=== PATIENT | female | born 1990 | race Caucasian/White ===

== ENCOUNTER 2020-11-11 06:16 | Emergency (ER) | payer OTHER ==
--- NOTE | 2020-11-11 07:24 | ED Physician Documentation ---
PD HPI HEENT - Stated complaint Stated Complaint: EAR PX - Chief complaint Chief Complaint: Heent - History obtained from History obtained from: Patient - Additional information Additional information: 30-year-old woman, previously healthy presents with bilateral ear pain gradual in onset, constant since Saturday (4 days ago), progressively worsening, nonradiating, localized to the bilateral ears, worse with tugging on the ears. No headache, sinus congestion, sore throat, pain to the jaw or skull. no fever Review of Systems Constitutional: denies: Fever, Chills Ears: reports: Ear pain Nose: denies: Rhinorrhea / runny nose, Congestion PD PAST MEDICAL HISTORY - Past Medical History Past Medical History: No - Past Surgical History Past Surgical History: No - Present Medications Home Medications: Ambulatory Orders Medication Instructions Recorded Confirmed Ciproflox/Dexameth Otic Drops 4 drops OT BID #7.5 ml 11/11/20 [Ciprodex Otic Drops] Ibuprofen [Motrin] 600 mg PO Q6H PRN #30 tab 11/11/20 - Allergies Allergies/Adverse Reactions: Allergies Allergy/AdvReac Type Severity Reaction Status Date / Time No Known Drug Allergies Allergy Verified 11/11/20 06:27 - Social History Does the pt smoke?: No Smoking Status: Never smoker Does the pt drink ETOH?: No Does the pt have substance abuse?: No - Immunizations Immunizations are current?: No Immunizations: TDAP >10years/unknown PD ED PE NORMAL - Vitals Vital signs reviewed: Yes - General General: Alert and oriented X 3, No acute distress, Well developed/nourished - HEENT HEENT: Atraumatic, PERRL, EOMI, Moist mucous membranes, Pharynx benign, Other (Bilateral TMs clear. Bilateral external otitis) - Derm Derm: Normal color, Warm and dry - Neuro Neuro: Alert and oriented X 3, medical insurance clerk 2-12 intact - Psych Psych: Normal mood, Normal affect Results - Vitals Vitals: Vital Signs - 24 hr 11/11/20 06:24 Temperature 37.3 C Heart Rate 91 Respiratory 17 Rate Blood Pressure 121/61 O2 Saturation 96 Oxygen O2 Source Room air PD MEDICAL DECISION MAKING - ED course ED course: 30-year-old woman presented with external otitis. Education given and return precautions given. She will follow up with her primary doctor. Departure - Departure Disposition: 01 Home, Self Care Clinical Impression: External otitis Condition: Good Instructions: ED Otitis Externa Prescriptions: Ciproflox/Dexameth Otic Drops [Ciprodex Otic Drops] 4 drops OT BID #7.5 ml Ibuprofen [Motrin] 600 mg PO Q6H PRN #30 tab PRN Reason: Pain Comments: You were seen in the emergency department for external ear infection. Take your antibiotic eardrops as prescribed and follow-up with your primary doctor. Return to the emergency department if you have any new or worsening symptoms or other concerns.
[2020-11-11 07:29] VITALS: BP 128/78
== END 2020-11-11 07:36 | disposition home or self-care (01) ==
LOC: ED 06:16
DX: H60.93 Unspecified otitis externa, bilateral (principal)
CPT/HCPCS: 99282; 99284

== ENCOUNTER 2021-09-14 10:57 | Outpatient (CLI) | payer OTHER | END 2021-09-14 10:58 | disposition home or self-care (01) | LOC: LAB.N 10:57 | PROVIDERS: ATTEND Midwife | DX: Z34.01 Encounter for supervision of normal first pregnancy, first trimester (principal) | CPT/HCPCS: 36415; 84702 ==

== ENCOUNTER 2021-09-16 11:02 | Outpatient (CLI) | payer OTHER | END 2021-09-16 11:03 | disposition home or self-care (01) | LOC: LAB.N 11:02 | PROVIDERS: ATTEND Midwife | DX: Z34.01 Encounter for supervision of normal first pregnancy, first trimester (principal) | CPT/HCPCS: 36415; 84702 ==

== ENCOUNTER 2021-09-21 10:36 | Outpatient (CLI) | payer OTHER | END 2021-09-21 10:37 | disposition home or self-care (01) | LOC: LAB 10:36 | PROVIDERS: ATTEND Midwife | DX: Z34.01 Encounter for supervision of normal first pregnancy, first trimester (principal) | CPT/HCPCS: 36415; 84702 ==

== ENCOUNTER 2021-10-13 06:28 | Outpatient (CLI) | payer OTHER | END 2021-10-13 06:29 | disposition critical access hospital (66) | LOC: EMS 06:28 | DX: O03.9 Complete or unspecified spontaneous abortion without complication (principal); R56.9 Unspecified convulsions | CPT/HCPCS: A0425; A0427 ==

== ENCOUNTER 2021-10-13 06:45 | Emergency (ER) | payer OTHER ==
[2021-10-13] MEDS ORDERED: KETOROLAC 15 MG/ML VIAL IVP STA (06:59)
[2021-10-13] MEDS ORDERED: SODIUM CHLORIDE 0.9% 1,000 ML IV STA (06:59)
--- NOTE | 2021-10-13 07:00 | ED Physician Documentation ---
PD HPI SYNCOPE - Stated complaint Stated Complaint: FALL/LOC/SZ BLOOD LOSS - Chief complaint Chief Complaint: Neuro - History obtained from History obtained from: Patient - Additional information Additional information: 31-year-old woman presents after an episode of syncope. Her has been marked by an ultrasound with known intrauterine but no progression and falling beta-hCG levels. She developed some spotting and then more bleeding and then had a syncopal episode with possible seizure. The seizure-like activity was marked by jerking that lasted 45 seconds or so wit h her eyes rolling back into her head and then she became quite stiff. She did have what could have been a postictal period for quite some time, at least minutes with poor memory and confusion. She is a G4, P2 with history of a miscarriage last fall. Review of Systems Ten Systems: 10 systems reviewed and negative Musculoskeletal: denies: Neck pain, Back pain Neurologic: reports: Head injury, LOC. denies: Headache PD PAST MEDICAL HISTORY - Past Surgical History Past Surgical History: No - Present Medications Home Medications: Ambulatory Orders Medication Instructions Recorded Confirmed HYDROcod/ACETAM 5/325 [[place] 5/325] 1 - 2 tab PO Q6H PRN #15 tablet 10/13/21 Ondansetron Odt [Zofran] 4 mg TL Q6H PRN #10 tablet 10/13/21 - Allergies Allergies/Adverse Reactions: Allergies Allergy/AdvReac Type Severity Reaction Status Date / Time No Known Drug Allergies Allergy Verified 10/13/21 06:55 - Social History Does the pt smoke?: No Smoking Status: Never smoker Does the pt drink ETOH?: No Does the pt have substance abuse?: No - Immunizations Immunizations are current?: No Immunizations: TDAP >10years/unknown PD ED PE NORMAL - Vitals Vital signs reviewed: Yes (Hemodynamics are unremarkable) - General General: Alert and oriented X 3, No acute distress - HEENT HEENT: PERRL, EOMI - Neck Neck: Supple, no meningeal sign, No bony TTP - Cardiac Cardiac: RRR, No murmur - Respiratory Respiratory: No respiratory distress, Clear bilaterally - Abdomen Abdomen: Soft, Non tender - Derm Derm: Normal color, Warm and dry - Extremities Extremities: No edema, No calf tenderness / cord - Neuro Neuro: Alert and oriented X 3, Normal speech Eye Opening: Spontaneous Motor: Obeys Commands Verbal: Oriented GCS Score: 15 - Psych Psych: Normal mood, Normal affect Results - Vitals Vitals: Vital Signs - 24 hr 10/13/21 10/13/21 10/13/21 06:49 06:57 08:56 Temperature 37.4 C Heart Rate 72 65 58 L Heart Rate [ Sitting] Heart Rate [ Standing] Heart Rate [ Supine] Respiratory 16 23 22 Rate Blood Pressure 103/82 H 103/82 H 104/62 Blood Pressure [Sitting] Blood Pressure [Standing] Blood Pressure [Supine] O2 Saturation 100 100 100 10/13/21 10/13/21 10/13/21 09:00 09:51 10:02 Temperature Heart Rate 61 59 L 64 Heart Rate [ Sitting] Heart Rate [ Standing] Heart Rate [ Supine] Respiratory 15 19 16 Rate Blood Pressure 104/52 L 104/56 L 108/60 Blood Pressure [Sitting] Blood Pressure [Standing] Blood Pressure [Supine] O2 Saturation 99 99 100 10/13/21 10:20 Temperature Heart Rate Heart Rate [ 70 Sitting] Heart Rate [ 98 Standing] Heart Rate [ 62 Supine] Respiratory Rate Blood Pressure Blood Pressure 97/65 [Sitting] Blood Pressure 93/67 [Standing] Blood Pressure 102/56 L [Supine] O2 Saturation Oxygen O2 Source Room air - EKG (time done) 0856 Rate: Rate (enter#) (57) Rhythm: NSR [place] Bottom: Normal Intervals: Normal NV QRS: Normal Ischemia: Normal ST segments - Labs Labs: Laboratory Tests 10/13/21 10/13/21 10/13/21 06:54 06:54 06:54 WBC 11.9 H RBC 3.77 L Hgb 12.0 Hct 35.7 L MCV 94.7 MCH 31.8 H MCHC 33.6 RDW 11.9 L Plt Count 333 MPV 10.3 Neut # (Auto) 10.2 H Lymph # (Auto) 1.2 L [place] # (Auto) 0.5 Eos # (Auto) 0.0 Baso # (Auto) 0.0 Absolute Nucleated RBC 0.00 Nucleated RBC % 0.0 Sodium 136 Potassium 4.5 Chloride 100 L Carbon Dioxide 25 Anion Gap 11.0 BUN 14 Creatinine 0.7 Estimated GFR (MDRD) 96 Glucose 142 H Calcium 9.1 Total Bilirubin 0.5 AST 15 ALT 17 Alkaline Phosphatase 43 Total Protein 7.2 Albumin 4.2 Globulin 3.0 Albumin/Globulin Ratio 1.4 Lipase 31 HCG, Quant 6801.00 SARS-CoV-2 (PCR) Blood Type Blood Type Recheck Antibody Screen 10/13/21 10/13/21 10/13/21 06:54 07:30 08:58 WBC RBC Hgb Hct MCV MCH MCHC RDW Plt Count MPV Neut # (Auto) Lymph # (Auto) [place] # (Auto) Eos # (Auto) Baso # (Auto) Absolute Nucleated RBC Nucleated RBC % Sodium Potassium Chloride Carbon Dioxide Anion Gap BUN Creatinine Estimated GFR (MDRD) Glucose Calcium Total Bilirubin AST ALT Alkaline Phosphatase Total Protein Albumin Globulin Albumin/Globulin Ratio Lipase HCG, Quant SARS-CoV-2 (PCR) NOT DETECTED Blood Type A POSITIVE Blood Type Recheck A POSITIVE Antibody Screen NEGATIVE 10/13/21 10:03 WBC 11.1 H RBC 3.45 L Hgb 11.0 L Hct 32.2 L MCV 93.3 MCH 31.9 H MCHC 34.2 RDW 11.9 L Plt Count MPV Neut # (Auto) Lymph # (Auto) [place] # (Auto) Eos # (Auto) Baso # (Auto) Absolute Nucleated RBC Nucleated RBC % Sodium Potassium Chloride Carbon Dioxide Anion Gap BUN Creatinine Estimated GFR (MDRD) Glucose Calcium Total Bilirubin AST ALT Alkaline Phosphatase Total Protein Albumin Globulin Albumin/Globulin Ratio Lipase HCG, Quant SARS-CoV-2 (PCR) Blood Type Blood Type Recheck Antibody Screen PD MEDICAL DECISION MAKING - ED course ED course: 31-year-old who is in the midst of a miscarriage now with heavier bleeding and a syncopal episode last night. There is some concern for seizure based on the 's description of events. Could have been just myoclonic jerking but he describes 45 seconds of jerking with what could certainly be a postictal period. As such a CT scan of the head was done, interpreted contemporaneously by me, and normal. Subsequently went over for ultrasound noting her beta-hCG has dropped significantly from a month ago and the ultrasound is consistent with a blighted ovum now in the upper cervix which is causing her bleeding. Given the possibility of seizure, I discussed with patient and her that they should follow-up with neurology and not drive for [address] Pierce, package pick up at 845 and she will be in to see the patient. 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 Recommends second H&H, was able to clear material from the cervix and thinks bleeding is over. Departure - Departure Disposition: 01 Home, Self Care Clinical Impression: Miscarriage Syncope Qualifiers: Syncope type: unspecified Qualified Code(s): R55 - Syncope and collapse Condition: Good Record reviewed to determine appropriate education?: Yes Instructions: ED Dizziness Syncope Fainting W Pre Prescriptions: HYDROcod/ACETAM 5/325 [[place] 5/325] 1 - 2 tab PO Q6H PRN #15 tablet PRN Reason: Pain Ondansetron Odt [Zofran] 4 mg TL Q6H PRN #10 tablet PRN Reason: Nausea / Vomiting Comments: I sent your prescriptions electronically to [facility] in [place]. As discussed, I think the fainting is most likely related to the blood loss from miscarriage, that said given the seizure-like activity that was witnessed, reasonable to follow-up with a neurologist. Talk with your primary care physician, next available appointment about a referral. Do not drive until neurology clears you or 6 months have passed. I am prescribing a short course of narcotic pain medication for you. These are potentially dangerous and addictive medications that should be used carefully. These medications may constipate you. Take an uado-avj-nvjzziu stool softener (docusate) twice daily with plenty of water while taking these medications. If you go 24 hours without a bowel movement, take hbzw-wta-bvwgquq miralax, per package instructions. Do not drink or drive while taking these medications. If you received narcotic or sedating medications while in the emergency department, do not drive for 24 hours. Store this medication in a safe, secure place and out of reach of children. It is a violation of federal law to give or sell this medication to another person or to use in a manner other than prescribed. The ED will not refill narcotic prescriptions, including prescriptions lost or stolen. To dispose of unwanted medications: 1. [facility] at [address] in [place] has a medication drop box. They accept prescription medications (in pill form) Saturday through Saturday 9:00 a.m. to 5:00 p.m. 2. The [facility] accepts prescription medications (in pill form only) for disposal year round. Call for more information. 3. Contact the [facility] for the next [facility] sponsored prescription drug collection event. , [phone], or [phone]; Note that many narcotic pain relievers also contain Tylenol/acetaminophen. Please ensure that your total dose of acetaminophen from all sources does not exceed 3 g (3000 mg) per day.
[2021-10-13 07:12] LABS: BASOPHILS % (AUTO) 0.3 %; EOSINOPHILS % (AUTO) 0.1 %; HCT - HEMATOCRIT 35.7 % (37.0-47.0); LYMPHOCYTES # (AUTO) 1.2 10^3/uL (1.5-3.5); LYMPHOCYTES % (AUTO) 10.1 %; MEAN CORPUSCULAR HEMOGLOBIN 31.8 pg (27.0-31.0); MEAN CORPUSCULAR HGB CONC 33.6 g/dL (32.0-36.0); MEAN CORPUSCULAR VOLUME 94.7 fL (81.0-99.0); MEAN PLATELET VOLUME 10.3 fL (7.9-10.8); MONOCYTES # (AUTO) 0.5 10^3/uL (0.0-1.0); MONOCYTES % (AUTO) 3.9 %; NEUTROPHILS # (AUTO) 10.2 10^3/uL (1.5-6.6); NEUTROPHILS % (AUTO) 85.2 %; PLT - PLATELET COUNT 333 10^3/uL (130-450); RED BLOOD COUNT 3.77 10^6/uL (4.20-5.40); RED CELL DISTRIBUTION WIDTH 11.9 % (12.0-15.0); WHITE BLOOD COUNT 11.9 x10^3/uL (4.8-10.8)
[2021-10-13 07:29] LABS: ALBUMIN 4.2 g/dL (3.2-5.5); ALBUMIN/GLOBULIN RATIO 1.4 (1.0-2.2); BILIRUBIN,TOTAL 0.5 mg/dL (0.2-1.0); CALCIUM 9.1 mg/dL (8.5-10.3); CREATININE 0.7 mg/dL (0.4-1.0); POTASSIUM 4.5 mmol/L (3.5-5.0); TOTAL PROTEIN 7.2 g/dL (6.7-8.2)
--- NOTE | 2021-10-13 07:40 | CT Report ---
PROCEDURE: HEAD WO INDICATIONS: fall and struck head/headache/? sz TECHNIQUE: Noncontrast 4.5 mm thick angled axial sections acquired from the foramen magnum to the vertex. For r adiation dose reduction, the following was used: automated exposure control, adjustment of mA and/or kV according to patient size. COMPARISON: None. FINDINGS: Image quality: Excellent. CSF spaces: Basal cisterns are patent. No extra-axial fluid collections. Ventricles are normal in size and shape. Brain: No midline shift. No intracranial masses or hemorrhage. Hand-white matter interface is norm al. Skull and face: Calvarium and visualized facial bones are intact, without suspicious lesions. Sinuses: Visualized sinuses and mastoids are clear. IMPRESSION: 1. No acute intracranial process. Reviewed by: Magi Saravia MD on 10/13/2021 7:39 AM PDT Approved by: Magi Saravia MD on 10/13/2021 7:39 AM PDT Station ID: [id number]
--- NOTE | 2021-10-13 09:45 | Ultrasound Report ---
PROCEDURE: OB First Trimester w/TV INDICATIONS: IUFD WITH POSSIBLE MISCARRIAGE NOW OUTSIDE/PRIOR DATING DATA: Last menstrual period (LMP): 07/25/2021.. LMP-based estimated date of delivery ([place]): Not calculated.. First dating scan (date and location): 09/20/2021 [facility]. Estimated date of delivery ([place]) from first dating scan: Not provided.. TECHNIQUE: Real-time scanning was performed of the fetus and maternal pelvic organs, with image documentation. Endovaginal scanning was also performed to better visualize the fetus and maternal ovaries. COMPARISON: OB ultrasound 10/03/2021. Report from a [facility] OB ultrasound 09/20/2021. FINDINGS: Intrauterine irregular gestational sac measuring 2.29 cm, (previously 2.09). Estimated gestational ag e 7 weeks 2 days. The gestational sac is low in the uterine cavity at the internal cervical os. pole is not confirmed. No cardiac motion. A yolk sac is seen. Maternal organs: Ovaries are unremarkable in appearance. No mass or significant cyst. IMPRESSION: Irregular intrauterine gestational sac located at the internal cervical os. No pole is not confirmed. Ultrasound findings diagnostic of failure. in progress. Results were conveyed to Dr. Crump by the supply chain planner at 8:55 AM. Reviewed by: Darshan Lombardo MD on 10/13/2021 9:44 AM PDT Approved by: Darshan Lombardo MD on 10/13/2021 9:44 AM PDT Station ID: [id number]
[2021-10-13 10:07] LABS: HCT - HEMATOCRIT 32.2 % (37.0-47.0); MEAN CORPUSCULAR HEMOGLOBIN 31.9 pg (27.0-31.0); MEAN CORPUSCULAR HGB CONC 34.2 g/dL (32.0-36.0); MEAN CORPUSCULAR VOLUME 93.3 fL (81.0-99.0); RED BLOOD COUNT 3.45 10^6/uL (4.20-5.40); RED CELL DISTRIBUTION WIDTH 11.9 % (12.0-15.0); WHITE BLOOD COUNT 11.1 x10^3/uL (4.8-10.8)
--- NOTE | 2021-10-13 10:25 | CONSULTATION NOTE ---
Referring Provider Name of Referring Provider:: Uriel Crump MD Consult Date: 10/13/21 Chief Complaint - Chief Complaint Chief Complaint: Vaginal Bleeding History of Present Illness - History of Present Illness HPI Comment/Other: Patient was brought into the emergency room via EMS after a syncopal episode. Patient reports that she was diagnosed with a miscarriage approximately 1 month ago while seeing a tieing machine operator. She reports that a gestational sac was seen on ultrasound however she did not start having bleeding until yesterday. Her bleeding became heavy at approximately 3 AM. She reports soaking multiple pads in an hour. She reports abdominal cramping at the time. Her bleeding has now decreased and her pain is improved.She denies any medical problems. She denies previous surgeries. 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) MRSA Hx?: No Meds/Allgy - Home Medications Home Medications: Ambulatory Orders Medication Instructions Recorded Confirmed HYDROcod/ACETAM 5/325 [[place] 5/325] 1 - 2 tab PO Q6H PRN #15 tablet 10/13/21 Ondansetron Odt [Zofran] 4 mg TL Q6H PRN #10 tablet 10/13/21 - Allergies Allergies/Adverse Reactions: Allergies Allergy/AdvReac Type Severity Reaction Status Date / Time No Known Drug Allergies Allergy Verified 10/13/21 06:55 Review of Systems - Constitutional Constitutional: denies: Fever, Chills Exam - Vital Signs Reviewed Vital Signs: Yes Vital Signs: Vital Signs x48h Temp Pulse Pulse Pulse Pulse Resp BP 10/13/21 10:20 70 98 62 10/13/21 10:02 64 16 108/60 10/13/21 09:51 59 L 19 104/56 L 10/13/21 09:00 61 15 104/52 L 10/13/21 08:56 58 L 22 104/62 10/13/21 06:57 65 23 103/82 H 10/13/21 06:49 99.3 F 72 16 103/82 H BP BP BP Pulse Ox 10/13/21 10:20 97/65 93/67 102/56 L 10/13/21 10:02 100 10/13/21 09:51 99 10/13/21 09:00 99 10/13/21 08:56 100 10/13/21 06:57 100 10/13/21 06:49 100 - Physical Exam General Appearance: positive: No acute distress Respiratory: positive: No respiratory distress Abdomen: positive: Non-tender, No distention Neurologic/Psychiatric: positive: Oriented x3 Comments/Other: Sterile speculum exam. Approximately 30 cc of blood and clot noted in the vaginal vault. Clots and membranous tissue noted in the cervical canal. These were gently removed with ring forcep and sent to pathology. Conclusion/Plan - Problem List (1) Complete Conclusion/Plan: 31-year-old G4, P2 at approximately 12 weeks gestation who presents with syncopal episode of vaginal bleeding. #Complete ABpatient with initially heavy vaginal bleeding. Now improved to minimal. Formal ultrasound with gestational sac reportedly noted in the internal cervix. Sterile speculum exam with clots noted in the endocervical canal removed with no active bleeding noted after. Rh+. Stable for discharge with supportive treatment pain meds and antiemetics as needed. Patient was given ED precautions to return for heavy bleeding soaking 2 pads in an hour. Recommend follow-up with OB within 2 weeks. Declined contraception at this time. - Lab Results Lab results reviewed: Yes Fish Bones: 10/13/21 10:03 10/13/21 06:54 - Diagnostic Imaging Results Diagnostic Imaging Results: positive: Final report reviewed
[2021-10-13 10:32] VITALS: BP 100/53
--- OUTSIDE RECORDS SUMMARY | 2021-10-19 14:55 | EXTERNAL MEDICAL SUMMARY RPT | Continuity of Care Document ---
:1990 Author Organization [facility] Address [address] [place] [phone] Phone Allergies No information. Encounters No information. Functional Status No information. Immunizations No information. Medications No information. Problems No information. Procedures No information. Results/Labs test date author facility value unit interpret ation Result panel 1 (unknown) (no (unknown) (unknown) (no value) (units (unk nown) date) unknown) (unknown) (no (unknown) (unknown) [address] [place] [address] (units (unknown) date) unknown) (unknown) (no (unknown) (unknown) [place], [place] (units ( unknown) date) [id number] unknown) (unknown) (no (unknown) (unknown) [facility] (units (unknown) date) unknown) (unknown) (no (unknown) (unknown) Signed (units (unkno wn) date) unknown) (unknown) (no (unknown) (unknown) Ultrasound (units (unk nown) date) Report unknown) (unknown) (no (unknown) (unknown) (no value) (units (unk nown) date) unknown) (unknown) (no (unknown) (unknown) 05/04/2022. (units (un known) date) unknown) (unknown) (no (unknown) (unknown) 09/20/21 (units (unkno wn) date) unknown) (unknown) (no (unknown) (unknown) 7 weeks 5 days. (units (unknown) date) A yolk sac is unknown) visualized. A 2nd sac which could be the amnion (unknown) (no (unknown) (unknown) Approved by: (units (u nknown) date) Darshan Lombardo M.D. unknown) on 09/20/2021 at 10:48 (unknown) (no (unknown) (unknown) COMPARISON: (units (un known) date) None. unknown) (unknown) (no (unknown) (unknown) Dictated by: (units (u nknown) date) Darshan Lombardo M.D. unknown) on 09/20/2021 at 10:45 (unknown) (no (unknown) (unknown) Embryo: Mean (units ( unknown) date) gestational sac unknown) diameter 2.7 cm corresponding to estimated (unknown) (no (unknown) (unknown) Estimated date (units (unknown) date) of delivery ([place]) unknown) from first dating scan: Estimated based on (unknown) (no (unknown) (unknown) FINDINGS: (units (unkn own) date) unknown) (unknown) (no (unknown) (unknown) First dating (units (u nknown) date) scan (date and unknown) location): 09/20/2021. (unknown) (no (unknown) (unknown) Heart rate: Not (units (unknown) date) applicable. unknown) (unknown) (no (unknown) (unknown) IMPRESSION: (units (un known) date) unknown) (unknown) (no (unknown) (unknown) INDICATIONS: (units (u nknown) date) DATING AND unknown) VIABILITY (unknown) (no (unknown) (unknown) Intrauterine (units (u nknown) date) gestational sac unknown) corresponding to estimated gestational age of 7 (unknown) (no (unknown) (unknown) LMP-based (units (unkn own) date) estimated date of unknown) delivery ([place]): 05/01/2022. (unknown) (no (unknown) (unknown) Last menstrual (units (unknown) date) period (LMP): unknown) 07/25/2021. (unknown) (no (unknown) (unknown) Maternal organs: (units (unknown) date) Ovaries are unknown) within normal limits. (unknown) (no (unknown) (unknown) OUTSIDE/PRIOR (units ( unknown) date) DATING DATA: unknown) (unknown) (no (unknown) (unknown) Real-time (units (unkn own) date) scanning was unknown) performed of the fetus and maternal pelvic organs, with (unknown) (no (unknown) (unknown) Recommend (units (unkn own) date) short-term unknown) follow-up OB ultrasound and trending beta hCG. (unknown) (no (unknown) (unknown) TECHNIQUE: (units (unk nown) date) unknown) (unknown) (no (unknown) (unknown) We strive to (units (u nknown) date) produce accurate, unknown) complete, and clear reports of imaging services. (unknown) (no (unknown) (unknown) and voice (units (unkn own) date) recognition unknown) software. Therefore, it may contain abnormal punctuation, (unknown) (no (unknown) (unknown) based on [facility]. (units (unknown) date) No pole at unknown) this time. Yolk sac and possible amnion sac (unknown) (no (unknown) (unknown) documentation. (units (unknown) date) Endovaginal unknown) scanning was also performed to better visualize the (unknown) (no (unknown) (unknown) insertions (units (unk nown) date) and/or omissions. unknown) Occasional wrong-word or sound-alike substitutions (unknown) (no (unknown) (unknown) maternal (units (unkno wn) date) ovaries. unknown) (unknown) (no (unknown) (unknown) occur. Though we (units (unknown) date) review the report unknown) and make efforts to correct it, we do (unknown) (no (unknown) (unknown) the report be (units ( unknown) date) read carefully in unknown) proper context to recognize any text (unknown) (no (unknown) (unknown) us in improving (units (unknown) date) patient care, unknown) this report was composed using standard report (unknown) (no (unknown) (unknown) visualized. No (units (unknown) date) pole at unknown) this time. (unknown) (no (unknown) (unknown) [id number] (units (unkn own) date) unknown) (unknown) (no (unknown) (unknown) Accession (units (unkn own) date) Number: unknown) [id number] (unknown) (no (unknown) (unknown) Age/Sex: 31 / F (units (unknown) date) Date of unknown) Service: (unknown) (no (unknown) (unknown) : 1990 (units (unknown) date) Acct:[id number] unknown) (unknown) (no (unknown) (unknown) Loc: [place] (units (unkno wn) date) unknown) (unknown) (no (unknown) (unknown) [facility] (units (unkno wn) date) unknown) (unknown) (no (unknown) (unknown) Ordering (units (unkno wn) date) Provider: unknown) Elicia Brewer L.M. (unknown) (no (unknown) (unknown) PROCEDURE: US (units (unknown) date) OB <= 14 WEEKS unknown) FETUS (unknown) (no (unknown) (unknown) Patient: (units (unkno wn) date) Donna Hunt unknown) MR#: [id number] (unknown) (no (unknown) (unknown) Procedure: US OB (units (unknown) date) <= 14 weeks fetus unknown) (unknown) (no (unknown) (unknown) To assist (units (unkn own) date) unknown) (unknown) (no (unknown) (unknown) fetus and (units (unkn own) date) unknown) (unknown) (no (unknown) (unknown) gestational age (units (unknown) date) unknown) (unknown) (no (unknown) (unknown) image (units (unkno wn) date) unknown) (unknown) (no (unknown) (unknown) inaccuracies. (units ( unknown) date) unknown) (unknown) (no (unknown) (unknown) is (units (unkno wn) date) unknown) (unknown) (no (unknown) (unknown) is seen. (units (unkno wn) date) unknown) (unknown) (no (unknown) (unknown) may (units (unkno wn) date) unknown) (unknown) (no (unknown) (unknown) recommend that (units (unknown) date) unknown) (unknown) (no (unknown) (unknown) templates (units (unkn own) date) unknown) (unknown) (no (unknown) (unknown) weeks 5 days (units (u nknown) date) unknown) Social History No information. Vital Signs No information.
== END 2021-10-13 10:30 | disposition home or self-care (01) ==
LOC: EDUNIT# → ED 06:45
DX: O03.9 Complete or unspecified spontaneous abortion without complication (principal); Z3A.00 Weeks of gestation of pregnancy not specified
CPT/HCPCS: 36415; 80053; 83690; 84702; 85025; 85027; 86850; 86900; 86901; 93005

== ENCOUNTER 2021-10-13 18:40 | Observation (INO) | payer OTHER ==
[2021-10-13] MEDS ORDERED: SODIUM CHLORIDE 0.9% 1,000 ML IV STA (18:58)
--- NOTE | 2021-10-13 19:09 | ED Physician Documentation ---
History of Present Illness - Stated complaint Stated Complaint: BLEEDING - Additonal information Additional information: 31-year-old female return to the emergency department for evaluation of heavy vaginal bleeding in the setting of a miscarriage as well as a syncopal episode. Seen earlier today by my colleague Dr. Witt. Ultrasound revealed an irregular Gestational sac at the cervical os. She was ultimately seen by OB who did a limited pelvic exam and were able to get the bleeding controlled. She was discharged home with emergent return precautions. At about 3 PM she began bleeding very heavily estimating about 3 pads an hour. She is also had a syncopal episode that she returned here to the ER. 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) - Past Surgical History Past Surgical History: No - Present Medications Home Medications: Ambulatory Orders Medication Instructions Recorded Confirmed HYDROcod/ACETAM 5/325 [[place] 5/325] 1 - 2 tab PO Q6H PRN #15 tablet 10/13/21 Ondansetron Odt [Zofran] 4 mg TL Q6H PRN #10 tablet 10/13/21 - Allergies Allergies/Adverse Reactions: Allergies Allergy/AdvReac Type Severity Reaction Status Date / Time No Known Drug Allergies Allergy Verified 10/13/21 06:55 - Social History Does the pt smoke?: No Smoking Status: Never smoker Does the pt drink ETOH?: No Does the pt have substance abuse?: No - Immunizations Immunizations are current?: No Immunizations: TDAP >10years/unknown PD ED PE EXPANDED - General General: Alert, Anxious, In distress - Cardiac Cardiac: Regular Rate, Radial strong equal, Pedal strong equal, Cap refill < 2 sec - Respiratory Respiratory: Clear to ausultation schuyler. No: Distress, Labored - Abdomen Abdomen: Normal Bowel sounds. No: Tender to palpation - Female Female : Vaginal Bleeding, Dilated cervix (2cm), Other (Large amount of bright red blood and heavy clots in the vaginal vault. These were removed but patient complaining continued to bleed heavily through her cervix) - Extremities Extremities: Normal. No: Deformity, Tenderness - Neuro Neuro: Alert and Oriented X 3, CNII-XII intact Results - Vitals Vitals: Vital Signs - 24 hr 10/13/21 10/13/21 18:45 19:38 Temperature 36.6 C Heart Rate 69 76 Respiratory 19 16 Rate Blood Pressure 89/40 L 112/58 L O2 Saturation 99 98 Oxygen O2 Source Room air - Labs Labs: Laboratory Tests 10/13/21 10/13/21 10/13/21 19:00 19:00 19:00 WBC 12.8 H RBC 3.29 L Hgb 10.5 L Hct 30.7 L MCV 93.3 MCH 31.9 H MCHC 34.2 RDW 11.9 L Plt Count 357 MPV 10.4 Neut # (Auto) 10.4 H Lymph # (Auto) 1.6 [place] # (Auto) 0.8 Eos # (Auto) 0.0 Baso # (Auto) 0.0 Absolute Nucleated RBC 0.00 Nucleated RBC % 0.0 Sodium 138 Potassium 3.7 Chloride 105 Carbon Dioxide 26 Anion Gap 7.0 BUN 13 Creatinine 0.7 Estimated GFR (MDRD) 96 Glucose 122 H Calcium 8.9 Total Bilirubin 0.3 AST 16 ALT 14 Alkaline Phosphatase 37 L Total Protein 6.5 L Albumin 3.7 Globulin 2.8 Albumin/Globulin Ratio 1.3 Lipase 29 Blood Type A POSITIVE Antibody Screen NEGATIVE - Rads (name of study) pelvic US Radiology: Final report received (Thickened heterogeneous appearance of the endometrium with increased vascularity likely represents products of conception from spontaneous in progress. Small cystic structure noted in the region of the cervix may represent loculated fluid or a remanent gestational sac. No adnexal masses) PD MEDICAL DECISION MAKING - ED course Complexity details: reviewed results, re-evaluated patient, d/w patient, d/w beauty consultant (Kari) ED course: 31-year-old female returns to the emergency department for evaluation of return of heavy vaginal bleeding and syncope. Seen earlier this morning by my colleague for a miscarriage. On initial presentation this a.m. her hemoglobin was 12 and had declined to 11 by the time she was ultimately discharged from the emergency department. About 3 PM she began to bleed heavily saturating about 3 pads an hour and she also had a fainting episode. Initially on presentation to the emergency department she was mildly hypotensive with a blood pressure of 90/40 but not tachycardic. Blood pressure improved with a liter of crystalloid. She was also given 1 g of TXA. Repeat hemogram shows further decline to 10.5. She continues to bleed heavily. I have consulted with Dr. Pierce, OB on-call. She will be admitting this patient to the OB floor. Ideally the patient would be taken to the operating room tonight for surgical management however we do not have circulating RN commissions specialist. Thus will be at the bedside is going to continue to conservatively manage her overnight and will take her to the OR in the morning if necessary. Departure - Departure Disposition: ED Place in Observation Clinical Impression: Incomplete miscarriage, Syncope and collapse, Transient hypotension Anemia Qualifiers: Anemia type: acquired or hereditary hemolytic anemia Hemolytic anemia type: acquired, other Qualified Code(s): D59.8 - Other acquired hemolytic anemias
[2021-10-13 19:10] LABS: BASOPHILS % (AUTO) 0.3 %; EOSINOPHILS % (AUTO) 0.2 %; HCT - HEMATOCRIT 30.7 % (37.0-47.0); HGB - HEMOGLOBIN 10.5 g/dL (12.0-16.0); LYMPHOCYTES # (AUTO) 1.6 10^3/uL (1.5-3.5); LYMPHOCYTES % (AUTO) 12.5 %; MEAN CORPUSCULAR HEMOGLOBIN 31.9 pg (27.0-31.0); MEAN CORPUSCULAR HGB CONC 34.2 g/dL (32.0-36.0); MEAN CORPUSCULAR VOLUME 93.3 fL (81.0-99.0); MEAN PLATELET VOLUME 10.4 fL (7.9-10.8); MONOCYTES # (AUTO) 0.8 10^3/uL (0.0-1.0); MONOCYTES % (AUTO) 5.8 %; NEUTROPHILS # (AUTO) 10.4 10^3/uL (1.5-6.6); NEUTROPHILS % (AUTO) 80.7 %; PLT - PLATELET COUNT 357 10^3/uL (130-450); RED BLOOD COUNT 3.29 10^6/uL (4.20-5.40); RED CELL DISTRIBUTION WIDTH 11.9 % (12.0-15.0); WHITE BLOOD COUNT 12.8 x10^3/uL (4.8-10.8)
[2021-10-13] MEDS ORDERED: TRANEXAMIC ACID 1,000 MG in SODIUM CHLORIDE 0.9% 100ML 100 ML IV STA (19:11)
[2021-10-13 19:29] LABS: ALBUMIN 3.7 g/dL (3.2-5.5); ALBUMIN/GLOBULIN RATIO 1.3 (1.0-2.2); BILIRUBIN,TOTAL 0.3 mg/dL (0.2-1.0); CALCIUM 8.9 mg/dL (8.5-10.3); CREATININE 0.7 mg/dL (0.4-1.0); POTASSIUM 3.7 mmol/L (3.5-5.0); TOTAL PROTEIN 6.5 g/dL (6.7-8.2)
[2021-10-13] MEDS ORDERED: TRANEXAMIC ACID 1,000 MG/10 ML VIAL ONE (19:44)
--- NOTE | 2021-10-13 20:53 | Ultrasound Report ---
PROCEDURE: Pelvic w/Transvaginal INDICATIONS: Pelvic pain R TECHNIQUE: Real-time scanning was performed of the pelvic organs, with image documentation. Additional endovagi nal scanning was necessary due to incomplete visualization of the adnexal and endometrial structures by transabdominal scanning. COMPARISON: 10/03/2021, 10/13/2021. FINDINGS: Uterus: Uterus is retroverted and measures 10.2 x 6.1 x 6.2 cm. The endometrium is thickened and het erogeneous in appearance, measuring up to 3.0 cm. There is internal vascularity within the endometriu m on color Doppler interrogation. There is a small oval cystic structure near the cervix measuring up to approximately 0.9 cm. No discrete pole or yolk sac visualized. Ovaries: The ovaries appear grossly within normal size limits. No adnexal masses identified. Other: There is minimal free fluid in the pelvic cul-de-sac. IMPRESSION: 1. Thickened heterogeneous appearance of the endometrium with internal vascularity likely represent p roducts of conception from spontaneous in progress. 2. Small cystic structure noted in the region of the cervix may represent loculated fluid or a remnan t gestational sac. 3. No adnexal masses. Reviewed by: Jose Enrique Jones MD on 10/13/2021 8:52 PM PDT Approved by: Jose Enrique Jones MD on 10/13/2021 8:52 PM PDT Station ID: [id number]
[2021-10-13] MEDS ORDERED: DOXYCYCLINE 100 MG TABLET PO STA (21:26)
[2021-10-13] MEDS ORDERED: metroNIDAZOLE 250 MG TABLET PO STA (21:26)
--- NOTE | 2021-10-13 21:33 | HISTORY & PHYSICAL EXAMINATION ---
Admit History - Visit Reason Visit Reason: Other (Vaginal bleeding) - : 4 Parity: 2 : 2 Smoking Status: Never smoker - Mother's Labs Mother's Blood Type: positive: A Mother's RH: positive: Positive - Other Maternal History Other Maternal History: The patient presents to the emergency department following a syncopal episode. She was seen in the emergency department earlier this morning after she began to have vaginal bleeding. The patient had a known missed and began bleeding This morning.When she was seen in the emergency department her hemoglobin was stable. Her bleeding had significantly decreased. She was found to have membranous tissue at the cervical os which was removed with no active bleeding noted after. The patient was given the option of receiving misoprostol versus expectant management. She elected for expectant management at home.At home her bleeding increased this afternoon. She reports another syncopal episode. Meds/Allgy - Home Medications Home Medications: Ambulatory Orders Medication Instructions Recorded Confirmed HYDROcod/ACETAM 5/325 [[place] 5/325] 1 - 2 tab PO Q6H PRN #15 tablet 10/13/21 Ondansetron Odt [Zofran] 4 mg TL Q6H PRN #10 tablet 10/13/21 - Allergies Allergies/Adverse Reactions: Allergies Allergy/AdvReac Type Severity Reaction Status Date / Time No Known Drug Allergies Allergy Verified 10/13/21 06:55 Review of Systems - Constitutional Constitutional: reports: Fatigue. denies: Fever, Chills Physical - Abdominal Exam Vital Signs: Temp Pulse Resp BP Pulse Ox 97.9 F 76 16 112/58 L 98 10/13/21 18:45 10/13/21 19:38 10/13/21 19:38 10/13/21 19:38 10/13/21 19:38 - Speculum Exam Speculum Exam Performed: positive: Yes (Sterile speculum exam performed. Approximately 30 cc of blood noted from the vaginal vault. Endo cervical canal Dilated to approximately 2 cm with membranous tissue visible. The tissue was removed with tissue forceps and sent to pathology. No active bleeding was noted.) Assessment/Plan - Problem List (1) Incomplete Assessment/Plan: 31-year-old G4, P2 Ab2 who presents with complaints of vaginal bleeding and syncopal episodes at home. Incomplete AB. The patient was seen in the emergency department earlier today with vaginal bleeding at the time her bleeding had improved. Her endometrial stripe was approximately 2 cm. However the patient had no active bleeding and membranous tissue at the cervix was removed. Upon returning home the patient began to have heavier bleeding and as instructed prior to her discharge return to the emergency department. Her hemoglobin dropped slightly from 11-10.5 on readmission. She was noted to be hypotensive on presentation. On sterile speculum exam the patient again had membranous tissue at the cervical os. The tissue was removed. Transvaginal ultrasound shows an endometrial stripe of approximately 2.4 cm. We discussed management with misoprostol versus dilation and curettage. The patient has elected for dilation and curettage. I was notified that we are unable to perform TOOL FILER HAND cases today secondary to lack of OR staff. I notified the patient of this and offered transfer to an outside hospital. She declined transfer at this time. She desires to await the surgical team in the morning. She is currently hemodynamically stable. I will continue to monitor her hemoglobin overnight. If the patient is noted to be unstable I will transfer her to an outside hospital. She is agreeable to this plan. Otherwise we will make n.p.o. overnight with plan for surgery in the morning. Consents signed. Will place in observation. - Results Lab Results: Laboratory Results Sodium 138 mmol/L (135-145) 10/13/21 19:00 Potassium 3.7 mmol/L (3.5-5.0) 10/13/21 19:00 Chloride 105 mmol/L (101-111) 10/13/21 19:00 Carbon Dioxide 26 mmol/L (21-32) 10/13/21 19:00 Anion Gap 7.0 (6-13) 10/13/21 19:00 BUN 13 mg/dL (6-20) 10/13/21 19:00 Creatinine 0.7 mg/dL (0.4-1.0) 10/13/21 19:00 Glucose 122 mg/dL (70-100) H 10/13/21 19:00 Calcium 8.9 mg/dL (8.5-10.3) 10/13/21 19:00 Total Bilirubin 0.3 mg/dL (0.2-1.0) 10/13/21 19:00 AST 16 IU/L (10-42) 10/13/21 19:00 ALT 14 IU/L (10-60) 10/13/21 19:00 Alkaline Phosphatase 37 IU/L (42-121) L 10/13/21 19:00 Total Protein 6.5 g/dL (6.7-8.2) L 10/13/21 19:00 Albumin 3.7 g/dL (3.2-5.5) 10/13/21 19:00 Globulin 2.8 g/dL (2.1-4.2) 10/13/21 19:00 Albumin/Globulin Ratio 1.3 (1.0-2.2) 10/13/21 19:00 Lab Results x24hrs 10/13/21 10/13/21 10/13/21 19:00 19:00 19:00 WBC 12.8 x10^3/uL H x10^3/uL (4.8-10.8) RBC 3.29 10^6/uL L 10^6/uL (4.20-5.40) Hgb 10.5 g/dL L g/dL (12.0-16.0) Hct 30.7 % L % (37.0-47.0) MCV 93.3 fL fL (81.0-99.0) MCH 31.9 pg H pg (27.0-31.0) MCHC 34.2 g/dL g/dL (32.0-36.0) RDW 11.9 % L % (12.0-15.0) Plt Count 357 10^3/uL 10^3/uL (130-450) MPV 10.4 fL fL (7.9-10.8) Neut # (Auto) 10.4 10^3/uL H 10^3/uL (1.5-6.6) Lymph # (Auto) 1.6 10^3/uL 10^3/uL (1.5-3.5) [place] # (Auto) 0.8 10^3/uL 10^3/uL (0.0-1.0) Eos # (Auto) 0.0 10^3/uL 10^3/uL (0.0-0.7) Baso # (Auto) 0.0 10^3/uL 10^3/uL (0.0-0.1) Absolute Nucleated RBC 0.00 x10^3/uL x10^3/uL Nucleated RBC % 0.0 /100WBC /100WBC Sodium 138 mmol/L mmol/L (135-145) Potassium 3.7 mmol/L mmol/L (3.5-5.0) Chloride 105 mmol/L mmol/L (101-111) Carbon Dioxide 26 mmol/L mmol/L (21-32) Anion Gap 7.0 (6-13) BUN 13 mg/dL mg/dL (6-20) Creatinine 0.7 mg/dL mg/dL (0.4-1.0) Estimated GFR (MDRD) 96 (>89) Glucose 122 mg/dL H mg/dL (70-100) Calcium 8.9 mg/dL mg/dL (8.5-10.3) Total Bilirubin 0.3 mg/dL mg/dL (0.2-1.0) AST 16 IU/L IU/L (10-42) ALT 14 IU/L IU/L (10-60) Alkaline Phosphatase 37 IU/L L IU/L (42-121) Total Protein 6.5 g/dL L g/dL (6.7-8.2) Albumin 3.7 g/dL g/dL (3.2-5.5) Globulin 2.8 g/dL g/dL (2.1-4.2) Albumin/Globulin Ratio 1.3 (1.0-2.2) Lipase 29 U/L U/L (22-51) Blood Type A POSITIVE Antibody Screen NEGATIVE - Home Meds/Allergies Allergies No Known Drug Allergies Allergy (Verified 10/13/21 06:55) - Additional Planning Condition/Complexity: Stable My Orders: My Active Orders 10/13/21 21:23 Admit \ Transfer \ Status [RC] .ONCE 10/13/21 21:26 Activity Orders [RC] DAILY Vital Signs [RC] Q2HR Doxycycline [Vibramycin] 100 mg PO ONCE STA metroNIDAZOLE [Flagyl] 500 mg PO ONCE STA 10/13/21 21:38 HYDROcod/ACETAM 5/325 [[place] 5/325] 1 - 2 tab PO Q4HR PRN 10/13/21 22:00 D5LR @ 125 mls/hr Dextrose 5%-Lactated Ringers [D5lr] 1,000 ml IV 125 mls/hr 10/14/21 00:01 NPO except Meds at Midnight [DIET] 10/14/21 05:00 CBC - COMP BLD CT W/AUTO DIFF [HEME] Stat Plan Discussed with:: Patient, Spouse Physical Exam - Physical Exam General: positive: No acute distress, Alert, Other (fatigued) Resipratory: negative: Distress Abdomen: negative: Distended, Rebound, Guarding
[2021-10-13] MEDS ORDERED: HYDROcod/ACETAM 5/325 MG TABLET PO PRN (21:38)
[2021-10-13] MEDS ORDERED: ONDANSETRON 4 MG/2 ML VIAL IVP PRN (22:28)
[2021-10-13] MEDS: DEXTROSE 5%-LACTATED RINGERS 1,000 ML IV SCH (22:35)
[2021-10-14 05:28] LABS: BASOPHILS % (AUTO) 0.5 %; EOSINOPHILS % (AUTO) 0.5 %; HCT - HEMATOCRIT 22.4 % (37.0-47.0); HGB - HEMOGLOBIN 7.6 g/dL (12.0-16.0); LYMPHOCYTES # (AUTO) 2.2 10^3/uL (1.5-3.5); LYMPHOCYTES % (AUTO) 28.8 %; MEAN CORPUSCULAR HEMOGLOBIN 32.6 pg (27.0-31.0); MEAN CORPUSCULAR HGB CONC 33.9 g/dL (32.0-36.0); MEAN CORPUSCULAR VOLUME 96.1 fL (81.0-99.0); MEAN PLATELET VOLUME 10.6 fL (7.9-10.8); MONOCYTES # (AUTO) 0.5 10^3/uL (0.0-1.0); MONOCYTES % (AUTO) 6.3 %; NEUTROPHILS # (AUTO) 4.9 10^3/uL (1.5-6.6); NEUTROPHILS % (AUTO) 63.6 %; PLT - PLATELET COUNT 247 10^3/uL (130-450); RED BLOOD COUNT 2.33 10^6/uL (4.20-5.40); RED CELL DISTRIBUTION WIDTH 12.2 % (12.0-15.0); WHITE BLOOD COUNT 7.7 x10^3/uL (4.8-10.8)
[2021-10-14] MEDS ORDERED: SODIUM CHLORIDE 0.9% 1,000 ML IV SCH (07:00)
[2021-10-14] MEDS: DEXTROSE 5%-LACTATED RINGERS 1,000 ML IV SCH (07:10)
[2021-10-14] MEDS ORDERED: ACETAMINOPHEN 325 MG TABLET PO PRN (07:47)
--- NOTE | 2021-10-14 08:11 | PROVIDER PROGRESS NOTE ---
Subjective - Prog Note Date Prog Note Date: 10/14/21 Prog Note Time: 07:54 - Subjective Pt reports feeling: Improved Subjective: Patient reports feeling better overnight.She has had minimal bleeding. She did have some dizziness when she stood up this morning. She desires to defer surgery for now. She wants to see how she feels after receiving a blood transfusion. Current Medications - Current Medications Current Medications: Active Medications Generic Name Dose Route Start Last Admin Trade Name Freq PRN Reason Stop Dose Admin Acetaminophen 650 mg 10/14/21 07:47 Acetaminophen 325 Mg Tablet PO Q4HR PRN Pain or Fever > 38C (100.4F) Hydrocodone Bitart/Acetaminophen 1 - 2 tab 10/13/21 21:38 Hydrocod/Acetam 5/325 Mg Tablet PO Q4HR PRN Abdominal Pain [place] Syrup 10 ml 10/14/21 07:48 [place] Syrup 10 Ml Udc PO 10/14/21 07:49 ONCE ONE Dextrose/Lactated Ringer's 1,000 mls @ 125 mls/hr 10/13/21 22:00 10/14/21 07:10 D5lr IV 125 mls/hr .Q8H MERRICK Administration Sodium Chloride 1,000 mls @ 0 mls/hr 10/14/21 07:00 Normal Saline 0.9% IV .Q0M MERRICK TKO Methylergonovine Maleate 0.2 mg 10/14/21 08:00 Methylergonovine 0.2 Mg/Ml Vial PO TID MERRICK Ondansetron HCl 4 mg 10/13/21 22:28 Ondansetron 4 Mg/2 Ml Vial IVP Q6HR PRN Nausea / Vomiting Objective - Vital Signs/Intake & Output Reviewed Vital Signs: Yes Vital Signs: Vital Signs x48h Temp Pulse Resp BP Pulse Ox 10/14/21 07:50 98.6 F 72 15 109/50 L 97 10/14/21 06:08 98.2 F 78 16 104/45 L 97 10/14/21 04:12 98.4 F 69 16 102/47 L 99 10/14/21 02:12 98.4 F 83 16 92/44 L 99 10/14/21 00:01 98.6 F 77 16 109/51 L 100 Intake & Output: Intake & Output 10/11/21 10/12/21 10/13/2122 23:59 23:59 23:59 23:59 Intake Total 1110 1000 Output Total 150 750 Balance 960 250 - Objective General Appearance: positive: No acute distress Respiratory: positive: No respiratory distress - Lab Results Fish Bones: 10/14/21 05:17 10/13/21 19:00 Other Labs: Lab Results x24hrs 10/14/21 10/13/21 10/13/21 Range/Units 05:17 19:00 19:00 WBC 7.7 12.8 H (4.8-10.8) x10^3/uL RBC 2.33 L 3.29 L (4.20-5.40) 10^6/uL Hgb 7.6 L 10.5 L (12.0-16.0) g/dL Hct 22.4 L 30.7 L (37.0-47.0) % MCV 96.1 93.3 (81.0-99.0) fL MCH 32.6 H 31.9 H (27.0-31.0) pg MCHC 33.9 34.2 (32.0-36.0) g/dL RDW 12.2 11.9 L (12.0-15.0) % Plt Count 247 357 (130-450) 10^3/uL MPV 10.6 10.4 (7.9-10.8) fL Neut # (Auto) 4.9 10.4 H (1.5-6.6) 10^3/uL Lymph # (Auto) 2.2 1.6 (1.5-3.5) 10^3/uL [place] # (Auto) 0.5 0.8 (0.0-1.0) 10^3/uL Eos # (Auto) 0.0 0.0 (0.0-0.7) 10^3/uL Baso # (Auto) 0.0 0.0 (0.0-0.1) 10^3/uL Absolute Nucleated RBC 0.00 0.00 x10^3/uL Nucleated RBC % 0.0 0.0 /100WBC Sodium 138 (135-145) mmol/L Potassium 3.7 (3.5-5.0) mmol/L Chloride 105 (101-111) mmol/L Carbon Dioxide 26 (21-32) mmol/L Anion Gap 7.0 (6-13) BUN 13 (6-20) mg/dL Creatinine 0.7 (0.4-1.0) mg/dL Estimated GFR (MDRD) 96 (>89) Glucose 122 H (70-100) mg/dL Calcium 8.9 (8.5-10.3) mg/dL Total Bilirubin 0.3 (0.2-1.0) mg/dL AST 16 (10-42) IU/L ALT 14 (10-60) IU/L Alkaline Phosphatase 37 L (42-121) IU/L Total Protein 6.5 L (6.7-8.2) g/dL Albumin 3.7 (3.2-5.5) g/dL Globulin 2.8 (2.1-4.2) g/dL Albumin/Globulin Ratio 1.3 (1.0-2.2) Lipase 29 (22-51) U/L Blood Type Antibody Screen Crossmatch IS Only 10/13/21 Range/Units 19:00 WBC (4.8-10.8) x10^3/uL RBC (4.20-5.40) 10^6/uL Hgb (12.0-16.0) g/dL Hct (37.0-47.0) % MCV (81.0-99.0) fL MCH (27.0-31.0) pg MCHC (32.0-36.0) g/dL RDW (12.0-15.0) % Plt Count (130-450) 10^3/uL MPV (7.9-10.8) fL Neut # (Auto) (1.5-6.6) 10^3/uL Lymph # (Auto) (1.5-3.5) 10^3/uL [place] # (Auto) (0.0-1.0) 10^3/uL Eos # (Auto) (0.0-0.7) 10^3/uL Baso # (Auto) (0.0-0.1) 10^3/uL Absolute Nucleated RBC x10^3/uL Nucleated RBC % /100WBC Sodium (135-145) mmol/L Potassium (3.5-5.0) mmol/L Chloride (101-111) mmol/L Carbon Dioxide (21-32) mmol/L Anion Gap (6-13) BUN (6-20) mg/dL Creatinine (0.4-1.0) mg/dL Estimated GFR (MDRD) (>89) Glucose (70-100) mg/dL Calcium (8.5-10.3) mg/dL Total Bilirubin (0.2-1.0) mg/dL AST (10-42) IU/L ALT (10-60) IU/L Alkaline Phosphatase (42-121) IU/L Total Protein (6.7-8.2) g/dL Albumin (3.2-5.5) g/dL Globulin (2.1-4.2) g/dL Albumin/Globulin Ratio (1.0-2.2) Lipase (22-51) U/L Blood Type A POSITIVE Antibody Screen NEGATIVE Crossmatch IS Only See Detail ABX Reporting Has patient been on IV antibiotics over the past 48 hours?: No Assessment/Plan - Problem List (1) Incomplete Impression: 31-year-old G4, P2 Ab2 who present admitted for vaginal bleeding. Hemoglobin this AM has dropped to 7.6. PRBC ordered. Bleeding improved. The patient geeta ires to defer surgery for now. Will continue to monitor bleeding.
[2021-10-14] MEDS ORDERED: diphenhydrAMINE 25 MG CAPSULE PO PRN (08:36)
[2021-10-14] MEDS: METHYLERGONOVINE 0.2 MG/ML VIAL PO SCH ×2 (09:46→15:02)
[2021-10-14] MEDS: CHERRY SYRUP 10 ML UDC PO SCH ×2 (09:46→15:02)
[2021-10-14] MEDS ORDERED: metroNIDAZOLE 250 MG TABLET PO ONE (17:00)
[2021-10-14] MEDS ORDERED: DOXYCYCLINE 100 MG TABLET PO ONE (17:00)
[2021-10-14 17:02] VITALS: BP 99/47
[2021-10-14 17:11] LABS: HCT - HEMATOCRIT 30.9 % (37.0-47.0); HGB - HEMOGLOBIN 10.3 g/dL (12.0-16.0); MEAN CORPUSCULAR HEMOGLOBIN 30.6 pg (27.0-31.0); MEAN CORPUSCULAR HGB CONC 33.3 g/dL (32.0-36.0); MEAN CORPUSCULAR VOLUME 91.7 fL (81.0-99.0); MEAN PLATELET VOLUME 10.6 fL (7.9-10.8); RED BLOOD COUNT 3.37 10^6/uL (4.20-5.40); RED CELL DISTRIBUTION WIDTH 13.9 % (12.0-15.0); WHITE BLOOD COUNT 10.5 x10^3/uL (4.8-10.8)
--- NOTE | 2021-10-14 18:02 | Discharge Plan ---
Discharge Plan Problem Reviewed?: Yes Disposition: Home, Self Care Condition: Stable Prescriptions: Methylergonovine Maleate [Methergine] 0.2 mg PO Q6HR #2 tablet Diet: Regular Activity Restrictions: pelvic rest Shower Restrictions: No Driving Restrictions: Yes (while taking narcotics, f/u with neurology as recommended by the ER ) No Smoking: If you smoke, Please STOP! Call for help. Follow-up with: Tadeo Rose MD [Provider Admit Priv/Credential] -
--- NOTE | 2021-10-14 18:09 | DISCHARGE SUMMARY ---
Discharge Summary Admit Date: 10/13/21 Discharge Date: 10/14/21 Discharging Provider: Thomas Pierce Condition at Discharge: Stable Discharge Disposition: 01 Home, Self Care - DIAGNOSES Admission Diagnoses: Incomplete , vaginal bleeding Discharge Diagnoses with Status of Each Condition: Complete - HOSPITAL COURSE Hospital Course: 31-year-old G4, P2 Ab2 presented to the emergency department with complaints of heavy vaginal bleeding and syncopal episodes.The patient was admitted with plan for dilation and curettage. Her bleeding improved by hospital day 1. She elected for expectant management. Her hemoglobin was noted to drop from 10-7. She received 2 units of packed red blood cells with appropriate rise. She remained asymptomatic with Minimal vaginal bleeding following transfusion. She was stable for discharge with ER precautions and recommendations for follow-up. - ALLERGIES Allergies/Adverse Reactions: Allergies Allergy/AdvReac Type Severity Reaction Status Date / Time hydrocodone AdvReac Emesis Verified 10/14/21 01:33 - MEDICATIONS Home Medications: Ambulatory Orders Medication Instructions Recorded Confirmed HYDROcod/ACETAM 5/325 [[place] 5/325] 1 - 2 tab PO Q6H PRN #15 tablet 10/13/21 Ondansetron Odt [Zofran] 4 mg TL Q6H PRN #10 tablet 10/13/21 Methylergonovine Maleate 0.2 mg PO Q6HR #2 tablet 10/14/21 [Methergine] - PHYSICAL EXAM AT DISCHARGE General Appearance: positive: No acute distress Respiratory: positive: No respiratory distress - LABS Result Diagrams: 10/14/21 16:56 10/13/21 19:00 - FOLLOW UP Follow Up: in [address] Tadeo Rose
--- OUTSIDE RECORDS SUMMARY | 2021-10-19 15:11 | EXTERNAL MEDICAL SUMMARY RPT | Continuity of Care Document ---
:1990 Author Organization [facility] Address [address] [place] [phone] Phone Allergies No information. Encounters No information. Functional Status No information. Immunizations No information. Medications No information. Problems No information. Procedures No information. Results/Labs test date author facility value unit interpret ation Result panel 1 (unknown) (no (unknown) (unknown) (no value) (units (unk nown) date) unknown) (unknown) (no (unknown) (unknown) [address] [place] [address] (units (unknown) date) unknown) (unknown) (no (unknown) (unknown) [place], [place] (units ( unknown) date) [id number] unknown) (unknown) (no (unknown) (unknown) [facility] (units (unknown) date) unknown) (unknown) (no (unknown) [...] unknown) this time. (unknown) (no (unknown) (unknown) [id number] (units (unkn own) date) unknown) (unknown) (no (unknown) (unknown) Accession (units (unkn own) date) Number: unknown) [id number] (unknown) (no (unknown) (unknown) Age/Sex: 31 / F (units (unknown) date) Date of unknown) Service: (unknown) (no (unknown) (unknown) : 1990 (units (unknown) date) Acct:[id number] unknown) (unknown) (no (unknown) (unknown) Loc: [place] [...]
== END 2021-10-14 18:35 | disposition home or self-care (01) ==
LOC: ED 18:40 → FBP 21:23
PROVIDERS: ADMIT Obstetrics & Gynecology; ATTEND Obstetrics & Gynecology
DX: O03.9 Complete or unspecified spontaneous abortion without complication (principal); O26.891 Other specified pregnancy related conditions, first trimester; Z3A.00 Weeks of gestation of pregnancy not specified; Z20.822 Contact with and (suspected) exposure to COVID-19
CPT/HCPCS: 36415; 70450; 76801; 76817; 76830; 76856; 80053; 83690; 84702; 85025; 85027; 86850; 86900; 86901; 86920; 87635; 93005; 96361; 96374; 99283; 99285; A9270; G0378; J2210; P9016

== ENCOUNTER 2022-12-27 21:18 | Emergency (ER) | payer OTHER ==
[2022-12-27 21:30] VITALS: BP 138/75; O2SAT 100
--- NOTE | 2022-12-27 21:38 | ED Physician Documentation ---
History of Present Illness - Stated complaint Stated Complaint: PREG/NO MOVEMENT - Chief complaint Chief Complaint: Abd Pain - History obtained from History obtained from: Patient - History of Present Illness Pain level max: 0 Pain level now: 0 - Additonal information Additional information: 32-year-old female, 6 para 2, Presents to the emergency department stating she is approximately 17 weeks . She states she has not felt any movement for the past 3 to 4 days. States had an ultrasound last week and they had difficulty finding the heartbeat. No vaginal bleeding or discharge. No pelvic pain. Asymptomatic. Review of Systems Constitutional: denies: Fever, Chills GI: denies: Vomiting Skin: denies: Rash Musculoskeletal: denies: Neck pain, Back pain Neurologic: denies: Headache PD PAST MEDICAL HISTORY - Past Medical History Cardiovascular: None Respiratory: None Neuro: None Endocrine/Autoimmune: None GI: None TREASURY ANALYST: Miscarriage(s) : None Psych: None Musculoskeletal: None Derm: None - Past Surgical History Past Surgical History: No - Present Medications Home Medications: Ambulatory Orders Medication Instructions Recorded Confirmed HYDROcod/ACETAM 5/325 [[place] 5/325] 1 - 2 tab PO Q6H PRN #15 tablet 10/13/21 Ondansetron Odt [Zofran] 4 mg TL Q6H PRN #10 tablet 10/13/21 Methylergonovine Maleate 0.2 mg PO Q6HR #2 tablet 10/14/21 [Methergine] - Allergies Allergies/Adverse Reactions: Allergies Allergy/AdvReac Type Severity Reaction Status Date / Time hydrocodone AdvReac Emesis Verified 12/27/22 21:22 - Social History Does the pt smoke?: No Smoking Status: Never smoker Does the pt drink ETOH?: No Does the pt have substance abuse?: No - Immunizations Immunizations are current?: No Immunizations: TDAP >10years/unknown PD ED PE NORMAL - Vitals Vital signs reviewed: Yes - General General: Alert and oriented X 3, No acute distress - Cardiac Cardiac: RRR - Respiratory Respiratory: No respiratory distress, Clear bilaterally - Abdomen Abdomen: Soft, Non tender, Non distended - Derm Derm: Warm and dry - Extremities Extremities: No edema - Neuro Neuro: Alert and oriented X 3 - Psych Psych: Normal mood, Normal affect Results - Vitals Vitals: Vital Signs - 24 hr 12/27/22 21:22 Temperature 36.5 C Heart Rate 76 Respiratory 16 Rate Blood Pressure 138/75 H O2 Saturation 100 Oxygen O2 Source Room air PD Medical Decision Making - ED course Complexity details: considered differential, d/w patient ED course: Bedside ultrasound reveals a intrauterine with excellent movement and a heart rate of 157 bpm. Images were shown to the patient. Patient has no other complaints at this time. She will follow-up with her OB for further care. Patient counseled regarding signs and symptoms for which I believe and urgent re-evaluation would be necessary. Patient with good understanding of and agreement to plan and is comfortable going home at this time This document was made in part using voice recognition software. While efforts are made to proofread this document, sound alike and grammatical errors may occur. Departure - Departure Disposition: 01 Home, Self Care Clinical Impression: Intrauterine Condition: Good Instructions: ED Preg Established Normal Sxs Follow-Up: Isadora Heard CNM, [facility] [employer] ATTENDANT [Primary Care Provider] - Comments: You have a intrauterine on ultrasound today with good movement and a heart rate of 157 bpm. Please follow-up with your OB for further care. Please return if you worsen.
== END 2022-12-27 21:50 | disposition home or self-care (01) ==
LOC: ED 21:18
DX: Z34.92 Encounter for supervision of normal pregnancy, unspecified, second trimester (principal)
CPT/HCPCS: 99282; 99283

== ENCOUNTER 2023-01-11 14:30 | Outpatient (CLI) | payer OTHER ==
--- NOTE | 2023-01-11 17:00 | Ultrasound Report ---
PROCEDURE: OB Detailed Eval INDICATIONS: SUPERVISON OF OUTSIDE/PRIOR DATING DATA: Last menstrual period (LMP): 08/27/2022. LMP-based estimated date of delivery (RICHARDSON): 06/03/2023. First dating scan (date and location): Today's exam. Estimated date of delivery (RICHARDSON) from first dating scan: 05/30/2023. The below data below was generated using the clinical RICHARDSON of 06/03/2023 TECHNIQUE: Real-time scanning was performed of the fetus, with image documentation and biometric measurements. Endovaginal scanning: Not performed COMPARISON: None. FINDINGS: General: A single living intrauterine gestation is present. Presentation: Breech Placenta: Placental position is posterior, without previa. Amniotic fluid index: 12.0 cm, within normal limits for gestational age. heart rate: 145 beats per minute. Maternal cervical canal not well visualized. biometrics: Biparietal diameter: 4.6 m, 20 weeks 0 days Head circumference: 18.2 cm, 20 weeks 4 days Abdominal circumference: 15.3 cm, 20 weeks 4 days Femur length: 3.2 cm, 20 weeks Estimated gestational age from initial scan: 19 weeks 4 days Composite gestational age from present scan: 20 weeks 1 day Estimated weight and percentile: 347 g, 87th percentile Measurement variability in biometric dating: +/- 10 days from 12-20 weeks gestation, +/- 2 weeks from 20-30 weeks gestation, +/- 3 weeks at 30 weeks gestation or later. Anatomic survey: Neuro: Ventricles are normal at less than 10 mm. Cisterna magna is normal at 3-11 mm. Cerebellum i s normal in size and morphology. Nuchal skin fold: Normal at less than 6 mm between 14 and 20 weeks gestational age. Face: Nose and lips, facial profile are normal. Spine: No evidence for spina bifida. Heart: Not well visualized. Diaphragm: Diaphragm is intact. Stomach: Left-sided stomach is present. Kidneys: Not well visualized. Cord: 3 vessel cord has orthotopic insertion. Bladder: Normal in size. Extremities: All 4 extremities are visualized. IMPRESSION: Single living intrauterine at 19 weeks 4 days, RICHARDSON of 04/02/2024. Estimated weight of 347 g, 87th percentile. Heart and kidneys are not well visualized. Recommend short-term follow-up. Otherwise, normal an atomy survey. Reviewed by: Kelechi Alejo on 01/11/2023 4:58 PM PDT Approved by: Kelechi Alejo on 01/11/2023 4:58 PM PDT Station ID: [id number]
== END 2023-01-11 14:31 | disposition home or self-care (01) ==
LOC: DI 14:30
PROVIDERS: ATTEND Nurse Practitioner Obstetrics & Gynecology
DX: Z34.00 Encounter for supervision of normal first pregnancy, unspecified trimester (principal); Z36.89 Encounter for other specified antenatal screening

== ENCOUNTER 2023-03-01 10:36 | Outpatient (CLI) | payer OTHER ==
[2023-03-01 11:52] LABS: BASOPHILS # (AUTO) 0.1 10^3/uL (0.0-0.1); BASOPHILS % (AUTO) 0.4 %; EOSINOPHILS # (AUTO) 0.1 10^3/uL (0.0-0.7); EOSINOPHILS % (AUTO) 0.6 %; HCT - HEMATOCRIT 35.1 % (37.0-47.0); LYMPHOCYTES # (AUTO) 1.7 10^3/uL (1.5-3.5); LYMPHOCYTES % (AUTO) 13.9 %; MEAN CORPUSCULAR HEMOGLOBIN 31.2 pg (27.0-31.0); MEAN CORPUSCULAR HGB CONC 34.2 g/dL (32.0-36.0); MEAN CORPUSCULAR VOLUME 91.2 fL (81.0-99.0); MEAN PLATELET VOLUME 10.2 fL (7.9-10.8); MONOCYTES # (AUTO) 0.7 10^3/uL (0.0-1.0); MONOCYTES % (AUTO) 5.7 %; NEUTROPHILS # (AUTO) 9.6 10^3/uL (1.5-6.6); NEUTROPHILS % (AUTO) 78.4 %; PLT - PLATELET COUNT 369 10^3/uL (130-450); RED BLOOD COUNT 3.85 10^6/uL (4.20-5.40); RED CELL DISTRIBUTION WIDTH 12.2 % (12.0-15.0); WHITE BLOOD COUNT 12.2 x10^3/uL (4.8-10.8)
== END 2023-03-01 10:37 | disposition home or self-care (01) ==
LOC: LAB 10:36
PROVIDERS: ATTEND Nurse Practitioner Obstetrics & Gynecology
DX: Z36.9 Encounter for antenatal screening, unspecified (principal)
CPT/HCPCS: 36415; 82950; 85025

== ENCOUNTER 2023-06-02 05:15 | Inpatient (IN) | payer OTHER ==
[2023-06-02] MEDS ORDERED: NIFEdipine 10 MG CAPSULE PO PRN (08:11)
[2023-06-02] MEDS ORDERED: TERBUTALINE 1 MG/ML VIAL SUBQ PRN (08:11)
[2023-06-02] MEDS ORDERED: OXYTOCIN 10 UNIT/ML VIAL IM PRN (08:11)
[2023-06-02] MEDS ORDERED: METHYLERGONOVINE 0.2 MG/ML VIAL IM PRN (08:11)
[2023-06-02] MEDS ORDERED: LABETALOL 20 MG/4 ML SYRINGE IVP PRN ×3 (08:11)
[2023-06-02] MEDS ORDERED: miSOPROStoL 200 MCG TABLET BC PRN (08:11)
[2023-06-02] MEDS ORDERED: lidocaine 1% 20 ML MDV ID PRN (08:11)
[2023-06-02] MEDS ORDERED: SODIUM CHLORIDE FLUSH 0.9% 10 ML SYRINGE IVP PRN (08:11)
[2023-06-02] MEDS ORDERED: TRANEXAMIC ACID IN NACL 1,000 MG/100 ML BAG IV PRN (08:11)
[2023-06-02] MEDS ORDERED: LACTATED RINGERS 1,000 ML IV PRN (08:11)
[2023-06-02] MEDS ORDERED: OXYTOCIN/SODIUM CHLORIDE 500 ML IV PRN (08:11)
[2023-06-02] MEDS ORDERED: hydrALAZINE INJ 20 MG/ML VIAL IVP PRN ×2 (08:11)
[2023-06-02] MEDS ORDERED: CARBOPROST TROMETHAMINE 250 MCG/ML AMP IM PRN (08:11)
[2023-06-02] MEDS ORDERED: miSOPROStoL 200 MCG TABLET PR PRN (08:11)
--- NOTE | 2023-06-02 08:16 | HISTORY & PHYSICAL EXAMINATION ---
Admit History - Visit Reason Visit Reason: Contractions - : 6 Parity: 2 Premature: 0 Ectopic: 0 : 3 Care: positive: [facility] Risk/History: positive: None Complications This : positive: None Smoking Status: Never smoker - Mother's Labs Mother's Blood Type: positive: A Mother's RH: positive: Positive GBS: positive: Group B Step Negative Rubella Status: positive: Immune - HPI Diagnosis/Indication for NST: Other - NST Procedure NST reactive. FHR baseline 140s, moderate variability, + accels, no decels Contractions palpate moderate every 3-5 minutes with soft resting tone Meds/Allgy - Home Medications Home Medications: Ambulatory Orders Medication Instructions Recorded Confirmed No Known Home Medications 12/27/22 12/27/22 - Allergies Allergies/Adverse Reactions: Allergies Allergy/AdvReac Type Severity Reaction Status Date / Time hydrocodone AdvReac Emesis Verified 12/27/22 21:22 Review of Systems - Constitutional Constitutional: denies: Fever, Chills, Malaise - Eyes Eyes: denies: Blurred vision, Spots in vision, Dipolpia - Cardiovascular Cariovascular: denies: Irregular heart rate, Palpitations, Chest pain - Respiratory Respiratory: denies: Cough, Wheezing, SOB at rest - Gastrointestinal Gastrointestinal: denies: Constipation, Diarrhea, Nausea, Vomiting - Genitourinary Genitourinary: denies: Dysuria - Integumentary Integumentary: denies: Rash, Pruritis - Neurological Neurological: denies: Headache - Psychiatric Psychiatric: denies: Depression, Anxiety - Hematologic/Lymphatic Hematologic/Lymphatic: denies: Anemia Physical - Abdominal Exam Contraction Frequency (min/apart): 3-5 Contraction Intensity: positive: Moderate Uterine Resting Tone: positive: Soft - Monitoring Heart Rate Baseline: 140 Strip Review: positive: Category I - Presentation Presentation: positive: Vertex - Vaginal Exam Membranes: positive: Membranes ruptured Dilation (in cm): 5 Effacement (%): 75 Station: positive: -2 Cervical Position: positive: Posterior Plan for Labor - Plan For Labor I expect patient to be DC'd or transferred within 96 hours.: Yes Plan for Labor: HPI: Donna is a 33yo @ 39.6wks gestation by LMP c/w 10.2wk U/S who presents to [facility] with c/o contractions. She has been intermittently gogo for the past 30 hours. She has occasionally felt like the contractions were getting stronger but then they would decrease again. She states last night the contractions became intense enough that she was unable to talk through them. This morning at approximately 0430 they starting coming consistently again and the intensity increased to a level it had not yet been at so they decided to come in feeling like active labor was starting. Upon arrival her cervix was 4/50/-3 and vertex. She ambulated x 2 hours with repeat SVE unchanged. At that time she really felt the contractions were again starting to increase in intensity and she would feel uncomfortable going home. She will be admitted to [facility] for early labor and augmentation of labor with AROM. She has been a patient of [facility] since her transfer of care from [facility] at 16wks gestation. She has received consistent care for the duration of her which has remained uncomplicated. Dating criteria: LMP 08/27/2022 Initial U/S @ 10.2wks c/w LMP dating Serial exams - agree director state pharmacy History: Term NSVB x 2. SAB x3. Last pap-unsure, performed at . Denies history of gonorrhea, chlamydia, genital herpes, oral herpes or any other STI. Sexual partner does NOT have HSV (oral or genital). Medical Hx: SAB w/ hemorrhage Surgical Hx: none Social Hx: Monogamous with male partner. Stopped drinking alcohol due to . Denies current use of tobacco, marijuana or other recreational drugs. Reports that she is safe in current relationship. Family Hx: none significant, Denies family history of congenital anomalies, Cystic Fibrosis or chromosomal abnormalities. Allergies: NKDA Medications: PNV course: A positive, antibody negative Rubella immune, varicella immune HIV non-reactive, RPR non-reactive Hep B non-reactive, Hep C non-reactive Initial U/S @ 10.2wks c/w LMP dating Genetic screening - declined FAS WNL with the exception of incomplete visualization of heart and kidneys. Posterior placenta no previa. Size c/w dating (EFW 87%tile). 3VC. GARY WNL. 01/25/2023: Completion FAS WNL Glucola 117 Tdap - declined Influenza - declined Covid -19- declined RSV - declined GBS negative Physical exam; Normocephalic, atraumatic Heart RRR w/o M/G/R Lungs CTAB Abdomen gravid, soft, nontender EFW 3400g FHR baseline 140s, moderate variability, + accels, no decels Contractions palpate moderate every 3-5 minutes with soft resting tone SVE 6/75/-2, vertex. AROM occurred at 0753 and was noted to be a moderate amount of clear fluid Bilateral LE's trace edema Assessment: 33yo @ 39.6wks gestation by LMP c/w 10.1wk U/S Early labor FHR Category I GBS negative Plan: Admit to [facility] for expectant management. Intermittent heart rate auscultation. Jacuzzi PRN. Nitrous oxide PRN. Epidural per maternal request. Anticipate NSVB.
--- NOTE | 2023-06-02 08:41 | PROCEDURE REPORT ---
- HPI Diagnosis/Indication for NST: Other - NST Procedure Donna presents today with c/o contractions. She is found to contract every 3-5 minutes with soft resting tone. She denies vaginal bleeding or leakage of fluid. She reports +FM. She feels the contractions have increased in both frequency and intensity significantly over the past 2 hours. She is supported by her Chencho and their 2 daughters today. FHR baseline 140s, moderate variability, + accels, no decels Contractions palpate moderate every 3-5 minutes with soft resting tone SVE 4/50/-2, vertex. Membranes intact. Pt ambulates x 2 hours with repeat SVE unchanged. Reviewed options to include discharge home, expectant management for additional 2 hours, or augmentation of labor with AROM. Pt desires admission with augmentation of labor with AROM. FINAL DIAGNOSIS: Early labor, >37wks gestation
[2023-06-02] MEDS ORDERED: SODIUM CHLORIDE FLUSH 0.9% 10 ML SYRINGE IVP SCH (09:00)
[2023-06-02] MEDS ORDERED: WITCH HAZEL/GLYCERIN 1 PAD TOP PRN (11:34)
[2023-06-02] MEDS ORDERED: HYDROCORTISONE 1% CREAM 28 GM TUBE PR PRN (11:34)
--- NOTE | 2023-06-02 11:44 | DELIVERY NOTE ---
Delivery Note - Labor Labor: positive: Spontaneous - Delivery Method Delivery Method: positive: Spontaneous vaginal delivery - Presentation Presentation: positive: Vertex, GRACE - left occiput anterior - Nuchal Cord Nuchal Cord: positive: Present - Amniotic Fluid Description Amniotic Fluid Description: positive: Clear - Episiotomy Type Episiotomy Type: positive: None - Laceration Laceration: positive: None - Delivery Outcome Delivery Outcome: positive: Livebirth - : positive: Placed in direct skin contact with mother, Stimulated, Warmed, Delphi used Kamas sex: positive: Male - Cord Cord: positive: 3 vessels - Placenta Placenta: positive: Intact, Spontaneous - Estimated Blood Loss Estimated Blood Loss (in cc): 250 - Post Delivery Events Post Delivery Events: positive: No post delivery events - Delivery Comments (Free Text/Narrative) Delivery Comments (Free Text/Narrative): Labor: This 33yo @ 39.6wks gestation by LMP c/w 10wk U/S presents to [facility] with c/o contractions. Upon arrival she was noted to be 4/50/-3 and vertex. FHR demonstrated Category I pattern throughout labor. Normal labor course. AROM occurred at 0753 and was noted to be a moderate amount of clear fluid. Pt progressed to c/c/+3 at 1045. : Normal SVB of viable male infant on 06/02/2023 @ 1046. Nuchal cord x 1 was delivered through. The was placed on maternal abdomen, stimulated, dried, and placed skin to skin. Apgars were 8/8 at 1 and 5 minutes respectively. Patient declined active management of the third stage. The umbilical cord was allowed to stop pulsating at which time it was doubly clamped by CNM and cut by patient's daughter. 3VC. Cord blood was obtained. Fundal massage and gentle cord traction applied for active management of the third stage. Placenta delivered spontaneously and intact at 1105. EBL 250mL. Fourth stage: Uterine fundus firm and there is no excessive bleeding. The perineum, vagina, and cervix were inspected and found to be intact. initiated. Family bonding well. Both mother and baby were left in stable condition.
[2023-06-02] MEDS: ACETAMINOPHEN 500 MG TABLET PO SCH (14:18)
[2023-06-02] MEDS: IBUPROFEN 600 MG TABLET PO SCH (14:19)
[2023-06-02 16:02] VITALS: O2SAT 98
[2023-06-02] MEDS: DOCUSATE SODIUM 100 MG CAPSULE PO SCH (22:00)
[2023-06-03 02:12] VITALS: BP 131/71
--- NOTE | 2023-06-03 07:43 | Discharge Plan ---
Discharge Plan Problem Reviewed?: Yes Disposition: Home, Self Care Condition: Good Diet: Regular Activity Restrictions: No Restrictions Shower Restrictions: No Driving Restrictions: No Weight Bearing: Full Weight Instruction Topics: Vaginal After No Smoking: If you smoke, Please STOP! Call for help. Follow-up with: Isadora Heard CNM, ARNP [Provider Admit Priv/Credential] - 1 Week (1 week phone call with Isadora Heard CNM/ZABRINA)
--- NOTE | 2023-06-03 07:50 | DISCHARGE SUMMARY ---
Discharge Summary Condition at Discharge: Good Discharge Disposition: 01 Home, Self Care - HOSPITAL COURSE Hospital Course: Date of Admission: 06/02/2023 Date of Discharge: 06/03/2023 Diagnosis on Admission: 1. 33yo @ 39.6wks gestation 2. Early labor 3. GBS negative 4. FHR Category I Diagnosis on Discharge: 1. 33yo PPD#1 s/p TSVB viable male 2. 3. Normal recovery Brief History: She is a patient of [facility] who presented on 06/02/2023 with c/o contractions. Upon arrival she was noted to be 4-5/50/-2 and vertex with intact membranes. AROM occurred for augmentation of labor per pt request. She progressed to spontaneously deliver a viable male infant on 06/03/2023 @ 1046 over intact perineum. Apgars were 8/8 at 1 and 5 min respectively. EBl 250mL. She has been doing well in her course. She is ambulating and tolerating a regular diet. She is urinating without difficulty and her lochia is normal. Her pain is well controlled with oral medications. She is without difficulty and is bonding well with her baby. She will be discharged home today on day #1 with instructions to continue taking her vitamin while and to continue taking ibuprofen and tylenol over the counter as needed for pain management. She intends to follow up with myself at [facility] in 1 week for routine visit or sooner if needed. She has been given precautions to call if she has any worsening fevers, chills, abdominal pain, increased vaginal bleeding or foul smelling vaginal lochia. Physical exam: Normocephalic, atraumatic. Heart RRR w/o M/G/R, lungs CTAB, abdomen soft and nontender with fundus firm at U, perineum intact, light lochia rubra, bilateral LE's trace edema. Mood is good. - ALLERGIES Allergies/Adverse Reactions: Allergies Allergy/AdvReac Type Severity Reaction Status Date / Time hydrocodone AdvReac Emesis Verified 12/27/22 21:22 - MEDICATIONS Home Medications: Ambulatory Orders Medication Instructions Recorded Confirmed No Known Home Medications 12/27/22 12/27/22
--- NOTE | 2023-06-03 13:37 | PHARMACY PROGRESS NOTE ---
- Best Possible Medication History Admit Date and Time: 06/02/23 0811 Patient Interview: Pt unable to participate (REFUSED PER RN) As the person ultimately responsible for medication therapy, providers are able to order a medication from an existing home medication list in [facility] via the "Reconcile Routine" prior to Confirmation of that medication by administrative support assoc. Such practice is discouraged except when the physician, in their clinical judgment, deems that a medical need exists for a medication without regard to previous use.
--- NOTE | 2023-06-03 14:37 | Labor Flowsheet ---
Labor Flowsheet Datetime Report Generated by CPN: 06/03/2023 14:37 Datetime: 06/03/2023 08:47 VITAL SIGNS NBP Sys/Carlyn/Mean (mmHg): 126 : 67 : 78 Pulse: 62 COMMUNICATION LaborFlag: OB Triage Datetime: 06/02/2023 14:28 Membranes Ruptured Date/Time: 06/02/2023 07:53 Datetime: 06/02/2023 10:40 UTERINE ACTIVITY Monitor Mode: Palpation Quality: Strong Pattern: Normal: <= 5 Contractions in 10 Minutes Resting Tone (Palpate): Relaxed ASSESSMENT A Monitor Mode: Doppler FHR Baseline Rate : 125 Variability: Moderate 6-25 bpm Datetime: 06/02/2023 09:30 Frequency (min): 4 Duration (sec): 50-70 Accelerations: 15X15 Decelerations: None Category: Category I Datetime: 06/02/2023 08:30 Contraction Comments: unable to adequately assess d/t pt positioning. Datetime: 06/02/2023 07:53 VAGINAL EXAM Dilatation (cm): 6.0 Effacement (%): 75 Station: -2 Exam by: Félix Membrane Status: Ruptured Membranes Rupture Method: Artificial Amniotic Fluid Color: Clear Amniotic Fluid Amount: Moderate Amniotic Fluid Odor: None Datetime: 06/02/2023 07:28 Vaginal Bleeding: None Cervix, Consistency: Moderate Cervix, Position: Posterior Datetime: 06/02/2023 05:59 Monitor Interventions for UA: [place] Adjusted Monitor Interventions for FHR: Ultrasound Adjusted PATIENT CARE Patient Position/Activity: Birthing Ball Datetime: 06/02/2023 05:25 Stage of : OB Triage Respirations: 18 SpO2 (%): 99 Temperature (C): 36.5 Temperature Route: Oral
== END 2023-06-03 13:15 | disposition home or self-care (01) | DRG 807 ==
LOC: WFO 05:15 → FBP 05:17 → WFO 08:10 → FBP 08:11
PROVIDERS: ADMIT Nurse Practitioner Obstetrics & Gynecology; ATTEND Nurse Practitioner Obstetrics & Gynecology
PROC: 10907ZC Drainage of Amniotic Fluid, Therapeutic from Products of Conception, Via Natural or Artificial Opening (ICD-10-PCS; principal; 2023-06-02)
PROC: 10E0XZZ Delivery of Products of Conception, External Approach (ICD-10-PCS; 2023-06-02)
DX: O69.81X0 Labor and delivery complicated by cord around neck, without compression, not applicable or unspecified (principal); Z37.0 Single live birth; Z3A.39 39 weeks gestation of pregnancy
CPT/HCPCS: 59409; 99215; A9270